=== PATIENT | male | born 1980 | race Caucasian/White ===

== ENCOUNTER 2025-03-11 12:03 | Outpatient (CLI) | payer MEDICAID ==
[~2025-03-11 12:03] MED LIST: CEPH-357 PO
--- NOTE | 2025-03-11 14:50 | RADIOLOGY REPORT ---
CLINICAL INFORMATION: OLECRANON BURSITIS, RIGHT ELBOW. COMPARISON: None TECHNIQUE: Multisequence multiplanar MRI images of the right elbow were obtained without contrast. FINDINGS: BONES/JOINT: No acute fracture or focal marrow contusion. No significant arthropathy. No significant joint effusion. TENDONS: Mild tendinosis of the common extensor tendon origin. Origin of the common flexor tendon is intact and otherwise unremarkable. Distal biceps tendon and brachialis tendon are intact. There is pr ominent ossification along the posterior aspect of the distal triceps tendon measuring up to 1.1 cm i n greatest dimension near its insertion, may be due to hydroxyapatite deposition disease and/or enthe sopathy. There is mild adjacent soft tissue edema with no organized fluid collection. LIGAMENTS: There is mild edema adjacent to the anterior band of the ulnar collateral ligament, possib ly sequelae of mild sprain or nonspecific inflammation. No tear. Radial collateral ligament, lateral ulnar collateral ligament, and annular ligament are intact. CUBITAL TUNNEL: Unremarkable. Normal signal intensity and caliber of the ulnar nerve within the cubit al tunnel. MUSCLES: Normal muscle bulk. No significant atrophy. No evidence of muscle strain or tear. OTHER: Limited examination due to suboptimal patient positioning due to the patient's pain. There is associated signal loss artifact, limiting evaluation. IMPRESSION: 1. Limited examination due to the reasons described above. 2. Focal ossification along the posterior aspect of the distal triceps tendon near its insertion, may be due to hydroxyapatite deposition disease and/or enthesopathy. There is mild adjacent soft tissue edema with no organized fluid collection. 3. Mild edema adjacent to the anterior band of the ulnar collateral ligament, possibly sequela of mil d sprain or nonspecific inflammation. No tear. 4. Additional findings as described above.
== END 2025-03-11 23:59 | disposition home or self-care (01) ==
LOC: MRI02 12:03
PROVIDERS: ATTEND Nurse Practitioner Occupational Health
DX: M70.21 Olecranon bursitis, right elbow (principal); R60.0 Localized edema
CPT/HCPCS: 73221